=== PATIENT | female | born 1940 | race Asian ===

== ENCOUNTER 2020-02-22 16:37 | Emergency (ER) | payer OTHER, MEDICAID ==
[~2020-02-22] VITALS: Ht 157.5 cm; Wt 68.0 kg
[2020-02-22 16:39] VITALS: BP 114/58
--- NOTE | 2020-02-22 16:50 | NUR ---
79 YEAR OLD FEMALE BIBA FROM [facility] FOR UNWITNESSED MECHANICAL FALL IN THE MORNING. PER EMS PT IS MORE LETHARGIC, BUT FACILITY STATES THAT THIS IS BASELINE. PT ALERT AND AWAKE, BREATHING EVEN AND UNLABORED, SKIN WARM AND DRY. BED IN LOWEST POSITION, LOCKED, BED RAIL UPX2. PMH - ALZHEIMERS, DEMENTIA, HTN, DM2, HYPOTHYROID ALLERGIES - NKA
[2020-02-22] MEDS ORDERED: ACETAMINOPHEN EXTRA STRENGTH 500 MG TAB PO STA (17:46)
--- NOTE | 2020-02-22 18:00 | NUR ---
PT ALERT AND AWAKE, BREATHING EVEN AND UNLABORED
--- NOTE | 2020-02-22 19:13 | NUR ---
REPORT GIVEN TO NICOLE TINOCO, TRANSFER OF CARE AT THIS TIME.
--- NOTE | 2020-02-22 19:14 | NUR ---
RECEIVED REPORT FROM CHUY TINOCO
--- NOTE | 2020-02-22 19:33 | NUR ---
PT SLEEPING, RESPIRATIONS REGULAR EVEN AND UNLABORED.
--- NOTE | 2020-02-22 20:02 | NUR ---
CALLED [facility] GAVE REPORT TO ROWENA AT FACILITY. CALLED PATIENT'S CONTACT, DEANNA NIETO, TO SEE IF HE CAN TRANSPORT PT BACK TO FACILITY. NO ANSWER, LEFT VOICE TO RETURN CALL
--- NOTE | 2020-02-22 21:06 | NUR ---
SPOKE AT [facility], PT'S SON, ADVISED TRANSPORT NOT AVAILABLE UNTIL MORNING TIME.
[2020-02-22] MEDS ORDERED: KETOROLAC 30 MG/ML VIAL IM ONE (21:25)
[2020-02-22] MEDS ORDERED: diphenhydrAMINE 50 MG/ML VIAL IM ONE (21:25)
--- NOTE | 2020-02-22 21:45 | NUR ---
X-Ray at bedside.
--- NOTE | 2020-02-22 22:13 | NUR ---
PT CONTINUES TO TRY AND GET OUT OF BED, MEDICATED WITH BENADRYL AND TORADOL PER ORDER
--- NOTE | 2020-02-22 22:22 | NUR ---
X-RAY BACK AT BEDSIDE
--- NOTE | 2020-02-22 22:40 | NUR ---
PT ASSISTED TO USE BEDSIDE COMMODE.
--- NOTE | 2020-02-22 23:06 | NUR ---
PT RESTING MORE QUIETLY. RESPIRATIONS REGULAR EVEN AND UNLABORED. NO SIGNS OF DISTRESS NOTED. WILL CONTINUE TO MONITOR
[2020-02-22] MEDS ORDERED: LORazepam 2 MG/ML VIAL ONE (23:44)
[2020-02-22] MEDS ORDERED: LORazepam 2 MG/ML VIAL IM ONE (23:50)
--- NOTE | 2020-02-22 23:50 | NUR ---
PT UP AND ATTEMPTING TO GET OUT OF BED, MD Dash AWARE, NEW ORDER RECEIVED
--- NOTE | 2020-02-23 00:32 | NUR ---
PT UP AT BEDSIDE COMMODE.
--- NOTE | 2020-02-23 02:36 | NUR ---
PT UP AND SITTING AT SIDE OF BED WITH ASSITANCE
--- NOTE | 2020-02-23 02:50 | NUR ---
PT LAYING BACK IN BED
--- NOTE | 2020-02-23 03:09 | NUR ---
PT CONTINUES TO RUB THE BACK OF HER HEAD AND GRIMACES, NEW ORDER RECEIVED FOR TYLENOL FOR PAIN
[2020-02-23] MEDS ORDERED: ACETAMINOPHEN EXTRA STRENGTH 500 MG TAB ONE (03:12)
[2020-02-23] MEDS ORDERED: ACETAMINOPHEN EXTRA STRENGTH 500 MG TAB PO ONE (03:15)
--- NOTE | 2020-02-23 04:17 | NUR ---
PT CONTINUES TO REMAIN RESTLESS AND ATTEMPTING TO GET OUT OF BED.
--- NOTE | 2020-02-23 07:13 | NUR ---
REPORT GIVEN TO KARLOS TINOCO FOR CONTIUATION OF CARE
--- NOTE | 2020-02-23 07:19 | NUR ---
RECEIVED REPORT FROM EARNEST RIVERA. PT APPEARS TO BE RESTING QUIETLY IN BED, WITH EYES OPEN, AND LYING ON LEFT SIDE. A&O, R/R EQUAL, AND UNLABORED. NO DISTRESS NOTED, WILL CONTINUE TO MONITOR. Addendum: 02/23/20 at 0725 by [facility] BED IN LOW POSITION, SIDE RAIL CHANNING Win TO MONITOR.
--- NOTE | 2020-02-23 07:42 | NUR ---
Breakfast tray provided.
--- NOTE | 2020-02-23 07:55 | NUR ---
SPOKE TO PT'S SON DEANNA. EXPLAINED TO HIM THE PLAN FOR TRANSPORTING PT BACK TO FACILITY. PER ANTONI GOSS, TRANSPORT WILL NOT BE AVAILABLE UNTIL 15OO TO [facility]. PT STATES HE DOESN'T FEEL COMFORTABLE TRANSPORTING PATIENT BACK TO FACILITY BECAUSE HIS POV ISN'T DISINFECTED. HE ALSO STATED HE WOULD CALL FACILITY TO GET ADDITIONAL INFORMATION REGARDING PT'S TRANSPORTATION POSSIBLY BEING SCHEDULED EARLIER IN THE DAY.
--- NOTE | 2020-02-23 08:02 | NUR ---
PT IS AWAKE, AND ALERT. LAYING IN BED. PT OFFERED BREAKFAST MEAL TRAY. PT STATES "NO".
--- NOTE | 2020-02-23 09:24 | NUR ---
PT APPEARS TO BE SLEEPING. CHEST RISES, AND FALLS SYMMETRICALLY. R/R EQUAL, AND UNLABORED. NO DISTRESS NOTED. SIDE RAIL X2, BED IN LOW POSITION CHANNING CONTINUE TO MONITOR.
--- NOTE | 2020-02-23 10:56 | NUR ---
Patient discharged with v/s stable. Written and verbal after care instructions given and explained. Patient's son verbalized understanding. Wheel Chair Assisted by caregiver. All questions addressed prior to discharge. Advised to follow up with PMD.
[2020-02-23 11:08] VITALS: BP 117/79
== END 2020-02-23 10:56 ==
LOC: MED 16:37
DX: S09.90XA Unspecified injury of head, initial encounter (principal); E03.9 Hypothyroidism, unspecified; E11.9 Type 2 diabetes mellitus without complications; F03.90 Unspecified dementia, unspecified severity, without behavioral disturbance, psychotic disturbance, mood disturbance, and anxiety; F02.80 Dementia in other diseases classified elsewhere, unspecified severity, without behavioral disturbance, psychotic disturbance, mood disturbance, and anxiety; G30.9 Alzheimer's disease, unspecified; I10 Essential (primary) hypertension; W19.XXXA Unspecified fall, initial encounter; Y93.89 Activity, other specified; Y92.89 Other specified places as the place of occurrence of the external cause; Y99.8 Other external cause status
CPT/HCPCS: 70450; 73590; 73630; 96372; 99285; J1200; J1885; J2060; Q0092; 96374; 99284

== ENCOUNTER 2023-07-24 08:54 | Emergency (ER) | payer OTHER, MEDICAID ==
[~2023-07-24] VITALS: Ht 152.4 cm; Wt 40.8 kg
[2023-07-24 08:58] VITALS: BP 137/73; PULSE 87; RESP 16; TEMP 97.2; O2SAT 97
[2023-07-24 10:21] VITALS: BP 127/67; PULSE 71; RESP 13; TEMP 97.2; O2SAT 100
[2023-07-24 11:31] LABS: BASOPHILS # (AUTO) 0.1 K/uL (0.00-0.22); BASOPHILS % (AUTO) 0.8 % (0.0-2.0); EOSINOPHILS # (AUTO) 0.1 K/uL (0-0.4); EOSINOPHILS % (AUTO) 0.7 % (0.0-4.0); HEMATOCRIT 44.4 % (36-48); HEMOGLOBIN 15.2 g/dL (12.0-16.0); LYMPHOCYTES # (AUTO) 1.7 K/uL (2.5-16.5); LYMPHOCYTES % (AUTO) 19.4 % (20.5-51.1); MEAN CORPUSCULAR HEMOGLOBIN 32 pg (27-31); MEAN CORPUSCULAR HGB CONC 34 g/dL (33-37); MONOCYTES # (AUTO) 0.5 K/uL (0.8-1.0); MONOCYTES % (AUTO) 5.8 % (1.7-9.3); NEUTROPHILS # (AUTO) 6.3 K/uL (1.8-7.7); NEUTROPHILS % (AUTO) 73.3 % (42.2-75.2); PLATELET COUNT (AUTO) 378 K/uL (140-450); RED BLOOD CELL COUNT(AUTO) 4.77 MIL/uL (4.20-5.40); RED CELL DISTRIBUTION WIDTH 14.2 % (11.6-13.7); WHITE BLOOD COUNT (AUTO) 8.5 K/uL (4.8-10.8)
[2023-07-24 12:26] LABS: ANION GAP 10.4 (8-16); CALCIUM 8.4 mg/dL (8.5-10.1); CARBON DIOXIDE 30.3 mmol/L (21-32); CHLORIDE 103 mmol/L (98-107); CREATININE 0.4 mg/dL (0.6-1.3); GLUCOSE 149 mg/dL (74-106); POTASSIUM 3.7 mmol/L (3.5-5.1); SODIUM SERUM 140 mmol/L (136-145); UREA NITROGEN, BLOOD 5 mg/dL (7-18)
== END 2023-07-24 16:37 | disposition home or self-care (01) ==
LOC: MED 08:54
DX: S32.10XA Unspecified fracture of sacrum, initial encounter for closed fracture (principal); S90.32XA Contusion of left foot, initial encounter; R41.82 Altered mental status, unspecified; G30.9 Alzheimer's disease, unspecified; F02.80 Dementia in other diseases classified elsewhere, unspecified severity, without behavioral disturbance, psychotic disturbance, mood disturbance, and anxiety; I10 Essential (primary) hypertension; E11.9 Type 2 diabetes mellitus without complications; E03.9 Hypothyroidism, unspecified; E78.00 Pure hypercholesterolemia, unspecified; F41.9 Anxiety disorder, unspecified; G47.00 Insomnia, unspecified; W18.39XA Other fall on same level, initial encounter; Y92.89 Other specified places as the place of occurrence of the external cause; Y93.89 Activity, other specified; Y99.8 Other external cause status
CPT/HCPCS: 36415; 70450; 72125; 72170; 72192; 80048; 85025; 99284